=== PATIENT | male | born 1955 | race Caucasian/White ===

== ENCOUNTER 2021-09-07 11:59 | Outpatient (CLI) | payer BC | END 2021-09-07 12:00 | disposition home or self-care (01) | LOC: CSHLAB 11:59 | PROVIDERS: ATTEND Surgery | DX: Z01.818 Encounter for other preprocedural examination (principal); Z20.822 Contact with and (suspected) exposure to COVID-19; K42.9 Umbilical hernia without obstruction or gangrene | CPT/HCPCS: 87811; 93005; 93010 ==

== ENCOUNTER 2021-09-10 05:54 | Day surgery (SDC) | payer BC ==
[2021-09-07 15:48] VITALS: BMI 25.6
[2021-09-10] MEDS ORDERED: EPINEPHrine 1 MG/ML AMP ONE (06:46)
[2021-09-10] MEDS ORDERED: Bupivacaine PF 0.5% 30 ML VIAL ONE (06:46)
[2021-09-10] MEDS ORDERED: PROPOFOL 20 ML ONE (07:01)
[2021-09-10] MEDS ORDERED: Fentanyl 100 MCG/2 ML VIAL ONE (07:01)
[2021-09-10] MEDS ORDERED: Lidocaine 2% PF 5 ML VIAL ONE (07:03)
[2021-09-10] MEDS ORDERED: Rocuronium Bromide 10 MG/ML (10ML VIAL) ONE (07:06)
[2021-09-10] MEDS ORDERED: Dexamethasone 20 MG/5 ML VIAL ONE (07:07)
[2021-09-10] MEDS ORDERED: Ondansetron PF 4 MG/2 ML Vial ONE (07:08)
[2021-09-10] MEDS ORDERED: Dexmedetomidine 200 MCG/2 ML VIAL ONE (07:25)
[2021-09-10] MEDS ORDERED: CEFAZOLIN 2 GM VIAL ONE (07:27)
[2021-09-10] MEDS ORDERED: HYDROcodone/Acetaminophen 5/325 mg Tablet PO PRN (07:27)
[2021-09-10] MEDS ORDERED: ePHEDrine Sulfate 50 MG/10 ML VIAL ONE (07:52)
[2021-09-10] MEDS ORDERED: Glycopyrrolate 0.2 MG/ML 5 ML SYRINGE ONE (08:24)
== END 2021-09-10 10:05 | disposition home or self-care (01) ==
LOC: CSHSDC 05:54
PROVIDERS: ATTEND Surgery
PROC: 0WUF4JZ Supplement Abdominal Wall with Synthetic Substitute, Percutaneous Endoscopic Approach (ICD-10-PCS; principal; 2021-09-10)
DX: K43.2 Incisional hernia without obstruction or gangrene (principal); I10 Essential (primary) hypertension; M62.08 Separation of muscle (nontraumatic), other site; Z79.82 Long term (current) use of aspirin; Z79.899 Other long term (current) drug therapy; Z88.8 Allergy status to other drugs, medicaments and biological substances; Z20.822 Contact with and (suspected) exposure to COVID-19; Z98.890 Other specified postprocedural states
CPT/HCPCS: C1713; J0171; J0690; J1100; J2001; J2405; J2704; J3010; S0020

== ENCOUNTER 2024-11-07 13:50 | Outpatient (CLI) | payer BC, MEDICARE | END 2024-11-07 13:51 | disposition home or self-care (01) | LOC: CSHRAD 13:50 | PROVIDERS: ATTEND Neurological Surgery | DX: M48.02 Spinal stenosis, cervical region (principal); Z98.1 Arthrodesis status; T84.226A Displacement of internal fixation device of vertebrae, initial encounter | CPT/HCPCS: 72040 ==